=== PATIENT | female | born 1950 | race Caucasian/White ===

== ENCOUNTER → 2020-12-09 | Outpatient (CLI) | payer MEDICARE ==
--- NOTE | 2020-12-09 14:36 | CT ---
EXAMINATION TYPE: CT sinus wo con DATE OF EXAM: 12/09/2020 COMPARISON: None HISTORY: Chronic sinusitis. CT DLP: 589 mGycm. Automated Exposure Control for Dose Reduction was Utilized. TECHNIQUE: CT scan of the sinuses is performed without contrast, axial images are obtained, coronal r eformatted images are also reviewed. FINDINGS: Mucosal thickening or small mucous retention cyst involving the lower margin of the maxilla ry antrum bilaterally. Minimal mucosal thickening involving the ethmoid air cells. No air-fluid level s. Sphenoid sinus normal. Frontal sinus is hypoplastic with no significant mucosal thickening.. Ther e is a nasal septal deviation. The ostiomeatal complex is patent bilaterally on the coronal images. Visualized portion of mastoid air cells show no abnormal opacification. The globes are intact bilate rally. IMPRESSION: 1. Nasal septal deviation with mild changes of chronic sinusitis
== END | disposition home or self-care (01) ==
LOC: RADCTMAIN 13:54
PROVIDERS: ATTEND Otolaryngology
DX: J32.9 Chronic sinusitis, unspecified (principal); J34.2 Deviated nasal septum
CPT/HCPCS: 70486

== ENCOUNTER → 2021-01-20 | Outpatient (CLI) | payer MEDICARE ==
--- NOTE | 2021-01-21 09:03 | BD ---
EXAMINATION TYPE: Axial Bone Density DATE OF EXAM: 01/20/2021 COMPARISON: NONE CLINICAL HISTORY: 70 YR OLD FEMALE......ICD-10 CODE: S42.309A HUMERUS FX, N95.1 POST MENOPAUSAL Height: 62.8 Weight: 112 FRAX RISK QUESTIONS: Glucocorticoids (More than 3mos): YES (Ex: prednisone, prednisolone, methylprednisolone, dexamethasone, and hydrocortisone). History of Fracture in Adulthood: YES RISK FACTORS HISTORY OF: HX OF LT HUMORAL FX INVOLVING SHOULDER, NO SURG. Diet low in dairy products/other sources of calcium: YES, A BIT LOW Postmenopausal woman: YES, AT ABOUT 51 YRS OLD Lost more than 2 inches in height since high school: YES Poor Health: FRAIL Hyperparathyroidism: NO Adrenal Insufficiency: NO MEDICATIONS: Prednisone or other steroids: YES IN THE PAST, NONE NOW Additional Medications: RANDOM USE OF CALCIUM AND VIT D Additional History: NOTHING ADDITIONAL TO ADD HERE EXAM MEASUREMENTS: Bone mineral densitometry was performed using the [employer]. Bone mineral density as measured about the Lumbar spine is: ----- L1-L4(G/cm2): 0.703 T Score Values are as follows: ----- L1: -3.9 ----- L2: -4.4 ----- L3: -4.0 ----- L4: -3.8 ----- L1-L4: -4.0 Bone mineral density THIS IS HER FIRST DEXA AT [facility] Bone mineral density about the R hip (g/cm2): 0.622 Bone mineral density about the L hip (g/cm2): 0.607 T Score values are as follows: -----R Neck: -3.3 -----L Neck: -3.3 -----R Total: -3.1 -----L Total: -3.2 Bone mineral density FIRST DEXA AT [facility] FRAX%s: THERE IS A 42.7% CHANCE FOR A MAJOR OSTEOPOROTIC FX AND A 19.8% FOR HIP......PROBABILITY FOR FX IN 10 YRS TIME IMPRESSION: Osteoporosis (T Score less than -2.5). There is increased fracture risk and therapy is usually indicated based on age. Re-Screen 1-2 years. NOTE: T-SCORE=SD OF THE YOUNG ADULT MEAN.
== END | disposition home or self-care (01) ==
LOC: RADBDWWP 11:16
PROVIDERS: ATTEND Family Medicine
DX: Z13.820 Encounter for screening for osteoporosis (principal); M81.0 Age-related osteoporosis without current pathological fracture; Z78.0 Asymptomatic menopausal state
CPT/HCPCS: 77080

== ENCOUNTER → 2021-06-10 | Outpatient (CLI) | payer MEDICARE ==
--- NOTE | 2021-06-10 11:45 | MR ---
EXAMINATION TYPE: MR brain wo/w con DATE OF EXAM: 06/10/2021 COMPARISON: NONE HISTORY: Tension headache, drainage in throat, ringing in ears, light headedness, ? CSF leak TECHNIQUE: Multiplanar, multisequence images of the brain and brainstem is performed without and with IV contras t, utilizing 5 mL intravenous Gadavist . FINDINGS: Diffusion weighted images demonstrate no evidence of a recent infarct or other diffusion ab normality. There is no extra-axial fluid collection or significant white matter signal abnormality. The ventricular system and cisternal spaces are normal in size and appearance. The brain volume is age appropriate. Midline structures demonstrate normal morphology. The craniocervical junction appears within normal limits. Post contrast images demonstrate no abnormal enhancement. The dural venous sinuses appear pa tent. The visualized sinuses are clear and the globes are intact. IMPRESSION: Unremarkable study.
== END | disposition home or self-care (01) ==
LOC: RADMRIMAIN 10:18
PROVIDERS: ATTEND Psychiatry & Neurology Neurology
DX: G44.209 Tension-type headache, unspecified, not intractable (principal); R42 Dizziness and giddiness
CPT/HCPCS: 70553; A9585

== ENCOUNTER 2024-01-12 10:12 | Day surgery (SDC) | payer MEDICARE ==
[2024-01-07 09:10] VITALS: BMI 19.5
[~2024-01-12 10:12] MED LIST: LIDOCAINE 1% (10MG/ML) FOR IV START INTRADERMA PRN
[2024-01-12] MEDS: LACTATED RINGERS 1,000 ML IV SCH (10:34)
[2024-01-12 10:54] VITALS: TEMP 97
[2024-01-12] MEDS ORDERED: PROPOFOL 10 MG/ML 20 ML VIAL IV ONE (11:01)
--- NOTE | 2024-01-12 11:19 | P.PCN ---
Date of Procedure: 01/12/24 Procedure(s) Performed: BRIEF HISTORY: Patient is a 73-year-old pleasant white female scheduled for an elective colonoscopy as a part of screening for colon cancer/positive Cologuard PROCEDURE PERFORMED: Colonoscopy with biopsy. PREOPERATIVE DIAGNOSIS: Screening for colon cancer/positive Cologuard. IV sedation per Anesthesia. PROCEDURE: After informed consent was obtained, the patient, was brought into the endoscopy unit. IV sedation was administered by Anesthesia under continuous monitoring. Digital rectal examination was normal. Initially the Olympus CF-160 flexible video colonoscope was then inserted in the rectum, gradually advanced into the cecum without any difficulty. Careful examination was performed as the scope was gradually being withdrawn. Ileocecal valve and the appendiceal orifice were visualized and appeared normal. Prep was excellent. Mucosa of the cecum, appeared normal. The ascending colon there was a 2 cm nonbleeding arteriovenous malformation identified. Rest of the ascending colon, transverse colon, descending colon, sigmoid colon, and rectum appeared normal. In the proximal rectum there was a 4 mm polyp that was removed by cold biopsy. Retroflexion was performed in the rectum and no lesions were seen. The patient tolerated the procedure well. 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 She was advised to follow with the biopsy results. If the biopsy reveals adenoma she can have repeat colonoscopy in 5 years..
[2024-01-12 12:44] VITALS: BP 103/51; PULSE 61; RESP 18
== END 2024-01-12 12:25 | disposition home or self-care (01) ==
LOC: ORWHC2ENDO 10:12
PROVIDERS: ATTEND Internal Medicine Gastroenterology
DX: K62.1 Rectal polyp (principal); Q27.30 Arteriovenous malformation, site unspecified; Z98.890 Other specified postprocedural states
CPT/HCPCS: 88305; 45380; J2704